=== PATIENT | male | born 1960 | race Caucasian/White ===

== ENCOUNTER 2016-10-24 15:29 | Emergency (ER) | payer BC ==
[~2016-10-24] VITALS: Ht 172.7 cm; Wt 82.9 kg
[~2016-10-24 15:29] MED LIST: ADVAIR 250/501 DISK IH; ADVIL,NUPRIN,M200 MG PO; ASPIR-LOW81 MG PO; Baciguent TP; ONE-A-DAY ESSE1 EAC1 PO; OXYCODONE HCL5 MG PO
[2016-10-24 15:31] VITALS: BP 132/80
[2016-10-24] MEDS ORDERED: MOTRIN800 MG PO (16:45)
[2016-10-24] MEDS ORDERED: AUGMENTIN875 MG PO (16:45)
== END 2016-10-24 18:06 | disposition home or self-care (01) ==
LOC: EME 15:29
DX: S61.255A Open bite of left ring finger without damage to nail, initial encounter (principal); W55.51XA Bitten by raccoon, initial encounter; Z87.891 Personal history of nicotine dependence
CPT/HCPCS: 99281; 99283

== ENCOUNTER 2016-10-27 11:58 | Emergency (ER) | payer BC ==
[~2016-10-27] VITALS: Ht 172.7 cm; Wt 85.8 kg
[~2016-10-27 11:58] MED LIST changes: +AUGMENTIN875 MG PO; +MOTRIN800 MG PO
[2016-10-27 14:56] VITALS: BP 126/84
== END 2016-10-27 14:57 | disposition home or self-care (01) ==
LOC: EME 11:58
PROC: 3E0234Z Introduction of Serum, Toxoid and Vaccine into Muscle, Percutaneous Approach (ICD-10-PCS; principal; 2016-10-27)
DX: S60.47 Other superficial bite of fingers (principal); W55.51XD Bitten by raccoon, subsequent encounter; Z20.3 Contact with and (suspected) exposure to rabies; Z23 Encounter for immunization
CPT/HCPCS: 99281; 99283

== ENCOUNTER 2016-10-31 17:34 | Emergency (ER) | payer BC ==
[~2016-10-31] VITALS: Ht 172.7 cm; Wt 85.0 kg
[2016-10-31 17:55] VITALS: BP 142/84
== END 2016-10-31 20:38 | disposition home or self-care (01) ==
LOC: EME 17:34
PROC: 3E0234Z Introduction of Serum, Toxoid and Vaccine into Muscle, Percutaneous Approach (ICD-10-PCS; principal; 2016-10-31)
DX: T14.8 Other injury of unspecified body region (principal); W55.51XD Bitten by raccoon, subsequent encounter; Z20.3 Contact with and (suspected) exposure to rabies; Z23 Encounter for immunization
CPT/HCPCS: 99281; 99284

== ENCOUNTER 2016-11-07 16:36 | Emergency (ER) | payer BC ==
[~2016-11-07] VITALS: Ht 172.7 cm; Wt 85.4 kg
[2016-11-07 16:53] VITALS: BP 154/95
== END 2016-11-07 19:42 | disposition home or self-care (01) ==
LOC: EME 16:36
PROC: 3E0234Z Introduction of Serum, Toxoid and Vaccine into Muscle, Percutaneous Approach (ICD-10-PCS; principal; 2016-11-07)
DX: S60.51 Abrasion of hand (principal); Z20.3 Contact with and (suspected) exposure to rabies; Z23 Encounter for immunization
CPT/HCPCS: 99281; 99284